=== PATIENT | female | born 1950 | race Caucasian/White ===

== ENCOUNTER 2025-04-06 21:14 | Emergency (ER) | payer OTHER, MEDICAID | END 2025-04-06 22:23 | disposition left against medical advice (07) | LOC: ER 21:34 | DX: T14.90XA Injury, unspecified, initial encounter (principal); Z53.21 Procedure and treatment not carried out due to patient leaving prior to being seen by health care provider; Y92.89 Other specified places as the place of occurrence of the external cause ==